=== PATIENT | male | born 2000 | race Caucasian/White ===

== ENCOUNTER 2025-02-05 11:33 | Emergency (ER) | payer MEDICAID, SELFPAY ==
[2025-02-05 11:46] VITALS: BP 125/83; PULSE 90; RESP 12; TEMP 36.8; O2SAT 98
--- NOTE | 2025-02-05 12:30 | DI.US_ITS ---
Exam(s) US LOWER EXTREMITY VENOUS LT EXAM: US LOWER EXTREMITY VENOUS LT CLINICAL HISTORY: Swelling, redness TECHNIQUE: Left lower extremity venous ultrasound performed using grayscale, color-flow, and spectra l Doppler analysis. COMPARISON: No exams were available for comparison FINDINGS: The left common femoral, femoral and popliteal veins demonstrate normal compressibility, augmentation , and color Doppler. The posterior tibial and peroneal veins are patent. The saphenofemoral junction is unremarkable. There is edema in the soft tissues of the lower extremity. There does appear to b e a a fusion within the knee joint. There is a 2.2 x 0.5 x 2.1 cm septated cyst in the calf posterio rly. IMPRESSION: No evidence of a left lower extremity DVT. DATA REPOSITORY:
--- NOTE | 2025-02-05 12:38 | ED.GENADUL_ITS ---
Discharge Plan Disposition Patient Disposition: Home Condition: Stable Discharge Details Clinical Impression: Effusion of knee joint, left, Left leg swelling Primary Care Provider: Unknown,Unknown ED Provider: Maryjo García Home Meds and New Rx's Prescriptions: No Action No Known Home Meds Discharge Instructions Instructions: Swelling, Swollen Joints Additional Instructions: No evidence of blood clot in your veins in your lower leg. No evidence of broken bones or bony abnormality. You do have a cyst in your left calf and some fluid on your left knee joint. Please wear the Antonio wrap for the next 5 to 7 days. Rest, ice, elevation while sitting or laying down. Follow up with primary care provider in 3-5 days. Return to ED sooner if any worsening or concerns. Please take Tylenol or Ibuprofen with food every 4-6 hours as needed for pain and swelling. Thank you for allowing us to care for you today. Referrals: Primary Care Provider [Outside] - 5 days HPI General Date/Time Provider Initiated Documentation: 02/05/25 11:49 . Related Data Home Medications ?Medication ?Instructions ?Recorded ?Confirmed Unknown [No Known Home Meds] 02/05/25 02/05/25 Allergies Allergy/AdvReac Type Severity Reaction Status Date / Time No Known Allergies Allergy Unverified 02/05/25 11:50 General Stated Complaint: Orthopedic AMRCOS: 4 Review of Systems All systems reviewed & are unremarkable except as noted in HPI and below Musculoskeletal Musculoskeletal: Reports as per HPI and Reports other (Swelling lower extremity mild tenderness to the heel) Exam Extrem Left lower extremity: lower leg Details: erythema Location: of the distal lower leg Location: anteriorly and localized swelling Location: of the distal lower leg and ankle Details: swelling Details: anteriorly Course Vital Signs Vital signs: Vital Signs Temperature 36.8 C 02/05/25 11:46 Pulse 90 02/05/25 11:46 Respiratory Rate 12 02/05/25 11:46 Blood Pressure 125/83 02/05/25 11:46 Pulse Oximetry 98 02/05/25 11:46 Temperature 36.8 C 02/05/25 11:46 Temperature Source Oral 02/05/25 11:46 Pulse 90 02/05/25 11:46 Respiratory Rate 12 02/05/25 11:46 Blood Pressure 125/83 02/05/25 11:46 Blood Pressure Position Sitting 02/05/25 11:46 Pulse Oximetry 98 02/05/25 11:46 Oxygen Delivery Method Room Air 02/05/25 11:46 Oxygen Flow Rate 0 02/05/25 11:46 Pain Level 7 02/05/25 11:46 Medical Decision Making 24-year-old male presents to the ER with a chief complaint of left lower leg swelling and redness which has been ongoing for approximately a week. He has no known injury. He does have some swelling noted to his left ankle and lower leg. He reports heel pain when putting on his shoes. Denies any long trips in a car plane. Has been taking Aleve. Distal CMS is intact. He does have slight red denia noted in the anterior aspect of his left foot and enriquez. X-ray left foot and tib-fib ordered to rule out occult fracture or unknown injury. And ultrasound to rule out DVT. Ultrasound shows no evidence of DVT. X-rays within normal limits. There is a knee effusion and a 2 cm septated cyst in the posterior calf. Will give Antonio wrap, instruct on RICE procedures and follow-up. This text was generated using [employer] system, please disregard any oddities of phrase or misspellings. Quality:SDOH Health Related Social Needs: No Data to Display PFSH All Active Problems (Updated 02/05/25 @ 14:00 by Maryjo García NP) Left leg swelling (Acute) Effusion of knee joint, left (Acute) Social History Smoking/Tobacco Use Status: Never Smoking risk assessment performed?: Yes Alcohol Intake: never Drug use: Never Substance use type: does not use Housing: apartment Do you feel safe at home: Yes Do you feel safe in your relationship?: Yes
[2025-02-05 13:00] VITALS: BP 119/63; PULSE 85
--- NOTE | 2025-02-05 13:40 | DI.RAD_ITS ---
Exam(s) XR TIB/FIB LT EXAM: XR TIB/FIB LT CLINICAL HISTORY: Swelling. TECHNIQUE: 2D digital imaging was performed of the left tibia and fibula. Three images were obtained . AP and lateral views were obtained. COMPARISON: No exams were available for comparison FINDINGS: BONES: No acute fracture is present. No bony destructive lesion is seen. Visualized portion of knee a nd ankle joints are unremarkable. SOFT TISSUE: Normal. IMPRESSION: Unremarkable radiographs of the left tibia and fibula. DATA REPOSITORY: RADIATION DOSE DELIVERED:
--- NOTE | 2025-02-05 13:40 | DI.RAD_ITS ---
Exam(s) XR FOOT LT COMPLETE EXAM: XR FOOT LT COMPLETE CLINICAL HISTORY: Swelling, heel pain. TECHNIQUE: 2D digital imaging was performed of the left foot. Three images were obtained. AP, obli que and lateral views were obtained. COMPARISON: No exams were available for comparison FINDINGS: BONES: No acute fracture is present. No bony destructive lesion is seen. JOINTS: No dislocation present. SOFT TISSUE: Normal. IMPRESSION: Unremarkable radiographs of the left foot. DATA REPOSITORY: RADIATION DOSE DELIVERED:
[2025-02-05 14:20] VITALS: BP 125/83; PULSE 90; RESP 12; TEMP 36.8; O2SAT 98
== END 2025-02-05 14:22 | disposition home or self-care (01) ==
LOC: ER 14:00
PROVIDERS: Emergency Provider Registered Nurse Emergency
DX: R22.42 Localized swelling, mass and lump, left lower limb (principal); M25.462 Effusion, left knee
CPT/HCPCS: 99284; 73590; 73630; 93971